=== PATIENT | female | born 1990 | race American Indian/Alaskan Native ===

== ENCOUNTER 2019-08-10 21:27 | Emergency (ER) | payer BC ==
[2019-08-10 21:35] VITALS: BP 150/93
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
[2019-08-10] MEDS ORDERED: FLUORESCEIN 1 MG STRIP OP ONE (22:21)
[2019-08-10] MEDS ORDERED: TETRACAINE 0.5% OPHTH SOLN 4ML OU ONE (22:21)
[2019-08-10] MEDS ORDERED: BALANCED SALT IRRIG (BSS) OPHTH SOLN 15 ML OU ONE (22:21)
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
[2019-08-10 22:34] LABS: Alanine Aminotransferase 11 units/L (7-56); Albumin 4.2 g/dL (3.9-5); BUN/Creatinine Ratio 9; Blood Urea Nitrogen 6 mg/dL (7-17); Calcium 9.2 mg/dL (8.4-10.2); Hemolysis Index 11
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
== END 2019-08-11 00:05 | disposition home or self-care (01) ==
LOC: ED 21:27
DX: S00.85XA Superficial foreign body of other part of head, initial encounter (principal); Y08.89XA Assault by other specified means, initial encounter; Y93.89 Activity, other specified; Y92.89 Other specified places as the place of occurrence of the external cause; Y99.8 Other external cause status
CPT/HCPCS: 36415; 70150; 80053; 84703